=== PATIENT | female | born 1950 | race Caucasian/White ===

== ENCOUNTER 2023-06-06 17:51 | Emergency (ER) | payer OTHER, MEDICARE ==
[2023-06-06] MEDS ORDERED: SODIUM CHLORIDE 0.9% 500 ML INFUS.BAG IV ONE (18:25)
[2023-06-06] MEDS ORDERED: MECLIZINE HCL 25 MG TABLET (FP) PO ONE (18:25)
[2023-06-06] MEDS ORDERED: MECLIZINE HCL 25 MG TABLET (FP) ONE (18:38)
[2023-06-06 18:43] LABS: HEMATOCRIT 39.5 % (32.4-45.2); HEMOGLOBIN 13.5 G/dL (10.7-15.3); MCH 28.5 pg (25.7-33.7); MCHC 34.1 g/dl (32.0-36.0); MEAN CELL VOLUME 83.6 fl (80-96); MEAN PLT VOLUME 8.3 fl (7.5-11.1); PLATELET COUNT 387.8 10^3/uL (134-434); RBC 4.72 10^6/uL (3.60-5.2); RDW 13.8 % (11.6-15.6); WHITE BLOOD COUNT 10.3 10^3/uL (4.0-10.8)
[2023-06-06 18:48] VITALS: BP 166/89; PULSE 97; RESP 18; TEMP 98.8; BMI 24.7
[2023-06-06 18:58] LABS: ALBUMIN 4.3 g/dl (3.4-5.0); BILIRUBIN,TOTAL 0.3 mg/dl (0.2-1); CALCIUM 9.7 mg/dl (8.5-10.1); CREATININE 0.8 mg/dl (0.6-1.3); PLATELET ESTIMATE ADEQUATE; POTASSIUM 4.1 mmol/L (3.5-5.1); TOT PROT 6.6 g/dl (6.4-8.2)
[2023-06-06] MEDS ORDERED: BENZONATATE 200 MG CAPSULE PO ONE (21:15)
== END 2023-06-06 21:31 | disposition home or self-care (01) ==
LOC: FER 17:51
DX: R42 Dizziness and giddiness (principal); R05.3 Chronic cough
CPT/HCPCS: 36415; 70450-TC; 71045-TC-FY; 80053; 83735; 84484; 85027; 93005; 99285-25

== ENCOUNTER → 2023-10-24 | Emergency (ER) | payer OTHER, MEDICARE | LOC: FER 21:27 | DX: M25.531 Pain in right wrist (principal) | CPT/HCPCS: 99281-25 ==

== ENCOUNTER 2023-10-30 17:29 | Emergency (ER) | payer OTHER, MEDICARE ==
[2023-10-30 17:50] VITALS: BP 134/63; PULSE 95; RESP 20; TEMP 98.7; BMI 22.8
[2023-10-30] MEDS ORDERED: ACETAMINOPHEN 325 MG TABLET (FP) ONE (17:56)
[2023-10-30] MEDS: ACETAMINOPHEN 500 MG TABLET (FP) PO ONE (17:59)
== END 2023-10-30 18:00 | disposition home or self-care (01) ==
LOC: FER 17:29
PROC: 2W3CX1Z Immobilization of Right Lower Arm using Splint (ICD-10-PCS; principal; 2023-10-30)
DX: M79.89 Other specified soft tissue disorders (principal); R20.2 Paresthesia of skin
CPT/HCPCS: 99283-25

== ENCOUNTER 2023-11-06 09:14 | Emergency (ER) | payer OTHER, MEDICARE ==
[2023-11-06 09:39] VITALS: BP 161/89; PULSE 96; RESP 16; TEMP 98.4; BMI 23.8
[2023-11-06] MEDS ORDERED: KETOROLAC TROMETHAMINE 30 MG/1 ML VIAL ONE (09:52)
[2023-11-06] MEDS ORDERED: LIDOCAINE 5% TOPICAL PATCH ONE (09:53)
[2023-11-06] MEDS: KETOROLAC TROMETHAMINE 30 MG/1 ML VIAL IM ONE (10:00)
[2023-11-06] MEDS: LIDOCAINE 5% TOPICAL PATCH TP ONE (10:02)
[2023-11-06] MEDS ORDERED: LIDOCAINE PATCH REMOVAL MC SCH (22:00)
== END 2023-11-06 11:02 | disposition home or self-care (01) ==
LOC: FER 09:14
PROC: 3E0133Z Introduction of Anti-inflammatory into Subcutaneous Tissue, Percutaneous Approach (ICD-10-PCS; principal; 2023-11-06)
DX: M62.838 Other muscle spasm (principal); M54.2 Cervicalgia
CPT/HCPCS: 99284-25

== ENCOUNTER 2024-09-23 20:39 | Emergency (ER) | payer OTHER, MEDICARE ==
[2024-09-23 20:59] VITALS: BP 175/71; PULSE 95; RESP 18; TEMP 100.8; BMI 23.8
[2024-09-23 21:12] LABS: ABSOLUTE IMMATURE GRANULOCYTES 0.01 x10^3/uL (0.0-0.031); BASOPHILS # 0.03 x10^3/uL (0.01-0.08); EOSINOPHIL % 0.4 % (0.7-5.8); EOSINOPHILS # 0.05 x10^3/uL (0.04-0.36); HEMATOCRIT 42.5 % (34.1-44.9); HEMOGLOBIN 13.9 g/dL (11.2-15.7); MCHC 32.7 g/dl (32.2-35.5); MEAN PLT VOLUME 10.3 fl (9.4-12.3); MONOCYTE # 0.81 x10^3/uL (0.24-0.86); MONOCYTE % 6.7 % (4.7-12.5); PLATELET COUNT 337 x10^3/uL (182-369); RDW 13.3 % (12.4-16.6)
[2024-09-23] MEDS: SODIUM CHLORIDE 1,000 ML IV ONE (21:16)
[2024-09-23] MEDS ORDERED: ACETAMINOPHEN INJECTION 100 ML ONE (21:17)
[2024-09-23] MEDS: ACETAMINOPHEN 1000 MG/100 ML BAG IVPB ONE (21:20)
[2024-09-23 21:42] LABS: ALBUMIN 4.8 g/dl (3.4-5.0); ALK PHOS 112 U/L (45-117); ANION GAP 11 mmol/L (4-13); BILIRUBIN,TOTAL 0.6 mg/dl (0.2-1); CALCIUM 10.3 mg/dl (8.5-10.1); CHLORIDE 100 mmol/L (98-107); CO2 27 mmol/L (21-32); CREATININE 0.7 mg/dl (0.6-1.3); GLUCOSE,RANDOM 123 mg/dl (74-106); MAGNESIUM 1.7 mg/dL (1.8-2.4); POTASSIUM 3.9 mmol/L (3.5-5.1); SGOT/AST 39 U/L (15-37); SGPT/ALT 56 U/L (7-52); SODIUM 138 mmol/L (136-145)
[2024-09-23 22:48] LABS: HCV DIAGNOSTIC IN-HOUSE W/RFLX NON-REACTIVE (NONREACTIVE)
[2024-09-23 22:49] LABS: HIV INTERPRETATION NEGATIVE (NEGATIVE)
[2024-09-23] MEDS ORDERED: AZITHROMYCIN 500 MG TABLET ONE (23:41)
[2024-09-23] MEDS: AZITHROMYCIN 500 MG TABLET PO ONE (23:42)
== END 2024-09-23 23:47 | disposition home or self-care (01) ==
LOC: FER 20:39
PROC: 3E033NZ Introduction of Analgesics, Hypnotics, Sedatives into Peripheral Vein, Percutaneous Approach (ICD-10-PCS; principal; 2024-09-23)
PROC: 3E0337Z Introduction of Electrolytic and Water Balance Substance into Peripheral Vein, Percutaneous Approach (ICD-10-PCS; 2024-09-23)
DX: J40 Bronchitis, not specified as acute or chronic (principal); R06.02 Shortness of breath; R05.9 Cough, unspecified; R61 Generalized hyperhidrosis; R19.7 Diarrhea, unspecified; R10.11 Right upper quadrant pain; M54.50 Low back pain, unspecified; G89.29 Other chronic pain
CPT/HCPCS: 0241U-QW; 36415; 71045-TC-FY; 76705-TC; 80053; 81003; 81015; 83735; 84484; 85025; 86803; 87086; 87186; 87389; 93005; 99285-25; J0131